=== PATIENT | female | born 1970 | race Caucasian/White ===

== ENCOUNTER 2021-04-15 15:17 | Emergency (ER) | payer OTHER ==
[~2021-04-15] VITALS: Ht 165.1 cm; Wt 81.6 kg
--- NOTE | 2021-04-15 16:05 | NUR ---
DR CRUZ AT BEDSIDE FOR MSE
[2021-04-15] MEDS ORDERED: HYDR-3972 PO (16:52)
--- NOTE | 2021-04-15 16:57 | NUR ---
WALKER BOOT APPLIED ON R LEG AND PT AMBULATED WITH NO ISSUES.
--- NOTE | 2021-04-15 17:14 | NUR ---
Patient discharged to home in stable condition. Written and verbal after care instructions given. Patient verbalizes understanding of instructions. Stressed follow up or return to ER for worsening s/s. Pt assisted out of ED via wheelchair. Picked up by .
[2021-04-15 17:36] VITALS: BP 125/70
== END 2021-04-15 17:37 | disposition home or self-care (01) ==
LOC: ER 15:17
DX: S92.001A Unspecified fracture of right calcaneus, initial encounter for closed fracture (principal); W22.8XXA Striking against or struck by other objects, initial encounter; Y93.F9 Activity, other caregiving; Y92.239 Unspecified place in hospital as the place of occurrence of the external cause; Y99.0 Civilian activity done for income or pay
CPT/HCPCS: 73610; 73650; A4663

== ENCOUNTER 2025-03-19 18:45 | Emergency (ER) | payer OTHER ==
[~2025-03-19] VITALS: Ht 165.1 cm; Wt 81.6 kg
[~2025-03-19 18:45] MED LIST: HYDR-3972 PO
[2025-03-19 18:59] VITALS: BP 149/89
[2025-03-19] MEDS ORDERED: IBUPROFEN 600 MG TABLET ONE (19:47)
[2025-03-19 19:49] VITALS: TEMP 98
[2025-03-19] MEDS: IBUPROFEN 600 MG TABLET PO ONE (19:49)
[2025-03-19 19:52] VITALS: BP 145/87; O2SAT 98
[2025-03-19] MEDS ORDERED: IBUP-1955 PO (19:52)
== END 2025-03-19 19:59 | disposition home or self-care (01) ==
LOC: ER 18:45
DX: S89.91XA Unspecified injury of right lower leg, initial encounter (principal); S99.911A Unspecified injury of right ankle, initial encounter; Z88.7 Allergy status to serum and vaccine; Z88.0 Allergy status to penicillin; W01.0XXA Fall on same level from slipping, tripping and stumbling without subsequent striking against object, initial encounter; Y93.89 Activity, other specified; Y92.89 Other specified places as the place of occurrence of the external cause; Y99.0 Civilian activity done for income or pay
CPT/HCPCS: 73562; 73610; A4606; A4663